=== PATIENT | female | born 1985 | race Caucasian/White ===

== ENCOUNTER 2018-05-03 23:15 | Emergency (ER) | payer OTHER ==
[2018-05-03 23:19] VITALS: BP 136/63; PULSE 83; TEMP 98.1; BMI 43.5
== END 2018-05-04 01:44 | disposition left against medical advice (07) ==
LOC: JER 23:15
DX: Z53.21 Procedure and treatment not carried out due to patient leaving prior to being seen by health care provider (principal)
CPT/HCPCS: 99281-25

== ENCOUNTER 2019-12-19 22:10 | Emergency (ER) | payer OTHER ==
[2019-12-19 22:44] VITALS: BP 131/82; PULSE 85; TEMP 98.1; BMI 46.7
--- NOTE | 2019-12-20 01:18 | PDOC ---
Attending Attestation - Resident Resident Name: Maria Antonia Christie - ED Attending Attestation I have performed the following: I have examined & evaluated the patient, The case was reviewed & discussed with the resident, I agree w/resident's findings & plan - HPI HPI: 12/20/19 01:59 see resident hpi - Physicial Exam PE: 12/20/19 01:59 see resident exam - Medical Decision Making 12/20/19 01:34-year-old female with sore throat and fever Exam consistent with acute pharyngitis Toradol, Decadron and antibiotics Will DC with primary care follow-up Patient is well-appearing and tolerating her secretions well with no airway compromise
[2019-12-20] MEDS ORDERED: KETOROLAC TROMETHAMINE 30 MG/1 ML VIAL IM ONE (01:19)
[2019-12-20] MEDS ORDERED: PENICILLIN G BENZATHINE 1,200,000 UNIT/2 ML PFS IM ONE ×2 (01:27→01:40)
[2019-12-20] MEDS ORDERED: DEXAMETHASONE 4 MG TABLET (FP) PO ONE (01:29)
--- NOTE | 2019-12-20 01:36 | PDOC ---
History of Present Illness - General Chief Complaint: Cold Symptoms Stated Complaint: FEVER /SORE THROAT Time Seen by Provider: 12/20/19 01:13 History Source: Patient Exam Limitations: No Limitations - History of Present Illness Initial Comments: 12/20/19 01:30 34YOF with h/o Strep pharyngitis and obesity who p/w sore throat, difficulty swallowing, and fever up to 101 at home for the past week. She notes this feels the same as her prior Strep pharyngitis. Denies SOB, chest pain, neck pain/ stiffness, FERRER, vomiting, diarrhea, constipation, weakness, head-to-toe body aches, or other symptoms. No rashes or dysuria. Denies any chance she may be . Past History - Past Medical History Allergies/Adverse Reactions: Allergies Allergy/AdvReac Type Severity Reaction Status Date / Time No Known Allergies Allergy Verified 02/16/18 14:47 Home Medications: Ambulatory Orders Acetaminophen/Caffeine/Butalb [Fioricet -] 1 tab PO Q6H PRN #10 tablet 01/19/16 Mv-Mn/Iron/FA/Herbal/Digestive [ One Tablet] 1 tab PO DAILY 02/16/18 Amoxicillin - [Amoxicillin 500mg Capsule -] 500 mg PO BID #20 capsule 12/20/19 Asthma: No Cancer: No Cardiac Disorders: Yes ("accelerated heartbeat") COPD: No Diabetes: No HTN: No Seizures: No Thyroid Disease: No - Immunization History Immunization Up to Date: Yes - Psycho Social/Smoking Cessation Hx Smoking Status: No Smoking History: Never smoked Have you smoked in the past 12 months: No Number of Cigarettes Smoked Daily: 0 Hx Alcohol Use: No Drug/Substance Use Hx: No Hx Substance Use Treatment: No Review of Systems - Review of Systems Able to Perform ROS?: Yes Comments:: 12/23/19 08:01 GEN: fever, chills, no malaise, or generalized weakness HEENT: sore throat, difficulty swallowing, no ear pain, congestion, vision change, or eye pain CV: no chest pain, palpitations, lightheadedness, syncope, or edema RESP: no SOB, wheezing, or cough GI: no abdominal pain, nausea, vomiting, diarrhea, constipation, or rectal bleed : no dysuria, hematuria, or discharge MSK: no muscle weakness or pain, no joint swelling or pain NEURO: no headache, vertigo, numbness, tingling, or focal weakness PSYCH: no SI, HI, or behavior change SKIN: no jaundice, rash, lesions, or unexplained bruises ROS otherwise negative except as noted in HPI *Physical Exam - Vital Signs Last Vital Signs Temp Pulse Resp BP Pulse Ox 98.1 F 85 20 131/82 98 12/19/19 22:41 12/19/19 22:41 12/19/19 22:41 12/19/19 22:41 12/19/19 22:41 - Physical Exam 12/23/19 08:03 GENERAL: well-appearing, A/Ox4, no distress, answers questions appropriately, pleasant, obese HEENT: +posterior pharyngeal erythema with 2+ tonsillar swelling and exudates, PERRLA, EOMI, moist mucous membranes NECK/BACK: no midline ttp, no spinal stepoff or deformity, no hematoma, full ROM , neck supple CARDIOVASCULAR: regular rate/rhythm, no MGR, strong peripheral pulses, capillary refill <2 seconds, extremities wwp, no edema LUNGS/RESPIRATORY: no respiratory distress, CTAB GI/ABDOMEN: symmetric [id number], normoactive BS, soft, no ttp, no midline pulsatile masses : no CVA tenderness EXTREMITIES: no muscle atrophy, no acute deformity SKIN: warm and dry, no pallor, no jaundice, no rash, no bruising, no skin breakdown, no cuts, no lesions NEUROLOGICAL: GCS 15, CN II-XII grossly intact, 5/5 strength proximally and distally, no facial droop Medical Decision Making - Medical Decision Making Adult patient p/w sore throat and fever in the absence of cough. Initial Vital Signs Temp Pulse Resp BP Pulse Ox 98.1 F 85 20 131/82 98 12/19/19 22:41 12/19/19 22:41 12/19/19 22:41 12/19/19 22:41 12/19/19 22:41 Exam: As noted in Physical Exam section. DDX IBNLT: Strep pharyngitis most likely, less likely viral URI, bronchitis, PNA , tracheitis, or other etiology. Very unlikely [employer] or RPA given lack of neck pain, patient tolerating PO and no trismus or drooling. W/U ordered: None On last reassessment, vitals are wnl, pain is reasonably controlled, and exam is benign. Workup is not concerning for emergency-level pathology at this time. E-Rx is sent to patient's pharmacy for abx given high probability of Strep pharyngitis. This patient is appropriate for discharge with close outpatient follow up. They are comfortable with this plan and will follow up with PCP in 1-3 days. Specific return precautions are discussed and they will come back to the ER if necessary. Discharge - Discharge Information Problems reviewed: Yes Clinical Impression/Diagnosis: Strep pharyngitis Condition: Stable Disposition: HOME - Admission No - Additional Discharge Information Prescriptions: Amoxicillin - [Amoxicillin 500mg Capsule -] 500 mg PO BID #20 capsule - Follow up/Referral Referrals: Laura Mitchell MD [Primary Care Provider] - - Patient Discharge Instructions Additional Instructions: You were seen in the ER for Strep throat. We sent a prescription for amoxicillin to your pharmacy, so please take and finish the antibiotic course whether or not your symptoms resolve. Please follow up with your regular doctor this week. Take Tylenol and Motrin for the pain. Return to the ER for any new or worsening symptoms, especially difficulty breathing, neck pain, fainting, rash, or other symptoms. - Post Discharge Activity Work/Back to School Note: Back to Work
[2019-12-20] MEDS ORDERED: KETOROLAC TROMETHAMINE 30 MG/1 ML VIAL ONE (01:40)
[2019-12-20] MEDS ORDERED: DEXAMETHASONE SOD PHOSPHATE 10 MG/1 ML VIAL ONE (01:40)
== END 2019-12-20 01:58 | disposition home or self-care (01) ==
LOC: JER 22:10
DX: J02.0 Streptococcal pharyngitis (principal); B95.5 Unspecified streptococcus as the cause of diseases classified elsewhere; E66.01 Morbid (severe) obesity due to excess calories; Z68.42 Body mass index [BMI] 45.0-49.9, adult
CPT/HCPCS: 99281-25